=== PATIENT | female | born 2000 | race Two or more races ===

== ENCOUNTER 2022-09-10 18:39 | Emergency (ER) | payer OTHER ==
[2022-09-10 18:59] VITALS: BP 112/66
--- NOTE | 2022-09-10 20:43 | ED Physician Documentation ---
History of Present Illness - Stated complaint Stated Complaint: COUGH,HEADACHE,ABD PX - Chief complaint Chief Complaint: General - History obtained from History obtained from: Patient, Other (With the use director corporate security service) - Additonal information Additional information: Patient is a 22-year-old female presenting for evaluation of headache, nonproductive cough, sore throat, body aches for 3 days. She also reports having a lower abdominal cramping and pain for the past 3 days and states that she has had a positive home test. She reports having an episode of creamy white discharge today that had some blood in it and also reports lower back pain. She reports a history of 1 prior miscarriage. She has not taken any medications for her symptoms. She denies any known sick contacts. She denies dysuria or concerns for sexually transmitted infections. She denies chest pain, difficulty breathing, nausea or vomiting. director corporate security service was used for all conversations and encounters with this patient. Review of Systems Constitutional: denies: Fever Nose: reports: Congestion Throat: reports: Sore throat Cardiac: denies: Chest pain / pressure Respiratory: reports: Cough. denies: Dyspnea GI: reports: Abdominal Pain. denies: Vomiting, Diarrhea : denies: Dysuria Musculoskeletal: reports: Back pain Neurologic: reports: Headache PD PAST MEDICAL HISTORY - Present Medications Home Medications: Ambulatory Orders Medication Instructions Recorded Confirmed No Known Home Medications 09/10/22 09/10/22 - Allergies Allergies/Adverse Reactions: Allergies Allergy/AdvReac Type Severity Reaction Status Date / Time No Known Drug Allergies Allergy Verified 09/10/22 18:59 PD ED PE NORMAL - General General: Alert and oriented X 3, No acute distress, Well developed/nourished - HEENT HEENT: Atraumatic, Moist mucous membranes, Pharynx benign (No oral swelling, erythema or exudate) - Neck Neck: Supple, no meningeal sign - Cardiac Cardiac: RRR - Respiratory Respiratory: No respiratory distress, Clear bilaterally - Abdomen Abdomen: Normal bowel sounds, Soft, Non distended, Other (Mild lower abdominal tenderness to palpation) - Back Back: No CVA TTP - Derm Derm: Warm and dry Results - Vitals Vitals: Vital Signs - 24 hr 09/10/22 18:50 Temperature 36.5 C Heart Rate 83 Respiratory 16 Rate Blood Pressure 112/66 O2 Saturation 100 Oxygen O2 Source Room air - Labs Labs: Laboratory Tests 09/10/22 09/10/22 09/10/22 19:00 20:50 20:50 WBC 6.5 RBC 4.67 Hgb 13.8 Hct 41.5 MCV 88.9 MCH 29.6 MCHC 33.3 RDW 11.5 L Plt Count 239 MPV 9.6 Neut # (Auto) 4.4 Lymph # (Auto) 1.5 [place] # (Auto) 0.4 Eos # (Auto) 0.2 Baso # (Auto) 0.0 Absolute Nucleated RBC 0.00 Nucleated RBC % 0.0 Sodium Potassium Chloride Carbon Dioxide Anion Gap BUN Creatinine Estimated GFR (MDRD) Glucose Calcium Total Bilirubin AST ALT Alkaline Phosphatase Total Protein Albumin Globulin Albumin/Globulin Ratio Lipase HCG, Quant Urine Color Urine Clarity Urine pH Ur Specific [place] Urine Protein Urine Glucose (UA) Urine Ketones Urine Occult Blood Urine Nitrite Urine Bilirubin Urine Urobilinogen Ur Leukocyte Esterase Ur Microscopic Review Urine Culture Comments Nasal Adenovirus (PCR) NOT DETECTED Nasal B. parapertussis DNA (PCR) NOT DETECTED Nasal Coronavir 229E PCR NOT DETECTED Nasal Coronavir HKU1 PCR NOT DETECTED Nasal Coronavir NL63 PCR NOT DETECTED Nasal Coronavir OC43 PCR NOT DETECTED Nasal Enterovir/Rhinovir PCR NOT DETECTED Nasal Influenza B PCR NOT DETECTED Nasal Influenza A PCR NOT DETECTED Nasal Parainfluen 1 PCR NOT DETECTED Nasal Parainfluen 2 PCR NOT DETECTED Nasal Parainfluen 3 PCR NOT DETECTED Nasal Parainfluen 4 PCR NOT DETECTED Nasal RSV (PCR) NOT DETECTED Nasal B.pertussis DNA PCR NOT DETECTED Nasal C.pneumoniae (PCR) NOT DETECTED Emmanuel Human Metapneumo PCR DETECTED A Nasal M.pneumoniae (PCR) NOT DETECTED Nasal SARS-CoV-2 (PCR) NOT DETECTED Group A Strep Rapid Blood Type O POSITIVE Blood Type Recheck 09/10/22 09/10/22 09/10/22 20:50 20:53 21:43 WBC RBC Hgb Hct MCV MCH MCHC RDW Plt Count MPV Neut # (Auto) Lymph # (Auto) [place] # (Auto) Eos # (Auto) Baso # (Auto) Absolute Nucleated RBC Nucleated RBC % Sodium 136 Potassium 3.7 Chloride 104 Carbon Dioxide 21 Anion Gap 11.0 BUN 10 Creatinine 0.6 Estimated GFR (MDRD) 125 Glucose 83 Calcium 9.4 Total Bilirubin 0.3 AST 20 ALT 15 Alkaline Phosphatase 64 Total Protein 8.5 H Albumin 4.6 Globulin 3.9 Albumin/Globulin Ratio 1.2 Lipase 32 HCG, Quant 11155.00 Urine Color Urine Clarity Urine pH Ur Specific [place] Urine Protein Urine Glucose (UA) Urine Ketones Urine Occult Blood Urine Nitrite Urine Bilirubin Urine Urobilinogen Ur Leukocyte Esterase Ur Microscopic Review Urine Culture Comments Nasal Adenovirus (PCR) Nasal B. parapertussis DNA (PCR) Nasal Coronavir 229E PCR Nasal Coronavir HKU1 PCR Nasal Coronavir NL63 PCR Nasal Coronavir OC43 PCR Nasal Enterovir/Rhinovir PCR Nasal Influenza B PCR Nasal Influenza A PCR Nasal Parainfluen 1 PCR Nasal Parainfluen 2 PCR Nasal Parainfluen 3 PCR Nasal Parainfluen 4 PCR Nasal RSV (PCR) Nasal B.pertussis DNA PCR Nasal C.pneumoniae (PCR) Emmanuel Human Metapneumo PCR Nasal M.pneumoniae (PCR) Nasal SARS-CoV-2 (PCR) Group A Strep Rapid Negative Blood Type Blood Type Recheck 09/10/22 09/10/22 21:49 22:17 WBC RBC Hgb Hct MCV MCH MCHC RDW Plt Count MPV Neut # (Auto) Lymph # (Auto) [place] # (Auto) Eos # (Auto) Baso # (Auto) Absolute Nucleated RBC Nucleated RBC % Sodium Potassium Chloride Carbon Dioxide Anion Gap BUN Creatinine Estimated GFR (MDRD) Glucose Calcium Total Bilirubin AST ALT Alkaline Phosphatase Total Protein Albumin Globulin Albumin/Globulin Ratio Lipase HCG, Quant Urine Color YELLOW Urine Clarity CLEAR Urine pH 5.5 Ur Specific Norris >=1.030 H Urine Protein TRACE Urine Glucose (UA) NEGATIVE Urine Ketones >=80 H Urine Occult Blood NEGATIVE Urine Nitrite NEGATIVE Urine Bilirubin NEGATIVE Urine Urobilinogen 0.2 (NORMAL) Ur Leukocyte Esterase NEGATIVE Ur Microscopic Review NOT INDICATED Urine Culture Comments NOT INDICATED Nasal Adenovirus (PCR) Nasal B. parapertussis DNA (PCR) Nasal Coronavir 229E PCR Nasal Coronavir HKU1 PCR Nasal Coronavir NL63 PCR Nasal Coronavir OC43 PCR Nasal Enterovir/Rhinovir PCR Nasal Influenza B PCR Nasal Influenza A PCR Nasal Parainfluen 1 PCR Nasal Parainfluen 2 PCR Nasal Parainfluen 3 PCR Nasal Parainfluen 4 PCR Nasal RSV (PCR) Nasal B.pertussis DNA PCR Nasal C.pneumoniae (PCR) Emmanuel Human Metapneumo PCR Nasal M.pneumoniae (PCR) Nasal SARS-CoV-2 (PCR) Group A Strep Rapid Blood Type Blood Type Recheck O POSITIVE PD Medical Decision Making - ED course Complexity details: reviewed results, re-evaluated patient, d/w patient ED course: Patient is presenting for evaluation of URI symptoms for the past 3 days along with lower abdominal cramping. She does report having a positive home test. Her vital signs are stable. She is overall well-appearing with no signs of labored breathing and her abdominal exam is benign. I do not think she has signs to suggest torsion or TOA. She denies concerns for sexually transmitted infections. Labs are reviewed and significant for elevated beta hCG.Her respiratory swab is also positive for human metapneumovirus.An ultrasound was obtained Which I reviewed and see evidence of an intrauterine .Her vaginal swabs are pending. Her urine does not appear to be infected. She has not required any pain medications here and again has no signs of labored breathing with normal lung exam. Her symptoms in regards to her URI are likely viral.I did review her results using a director corporate security. Patient is counseled on need for follow-up with [facility] to establish care. I did also recommend starting vitamins. Patient is counseled on continued supportive care as well as concerning symptoms to return for. Departure - Departure Disposition: Home, Self Care Clinical Impression: Viral URI, Intrauterine Condition: Stable Instructions: ED Miscarriage Poss, ED URI Viral Comments: You have a cold virus called human metapneumovirus. There is no specific treatment for this but I would recommend fluids, rest and acetaminophen as needed for aches and pain. Your ultrasound shows a Inside your uterus that is approximately 5 weeks and 5 days. Any symptoms of vaginal bleeding or abdominal pain it could indicate a possible miscarriage but at this time it is too early to tell. I would recommend follow-up with an [facility] office. I would also recommend taking vitamins. The results of your vaginal swabs will be back in the next 1 to 2 days.We will notify you of any abnormal results. Return to the ER with any worsening pain or heavy vaginal bleeding. Discharge Date/Time: 09/10/22 23:14
[2022-09-10 20:54] LABS: B. PARAPERTUSSIS- RESP PCR PAN NOT DETECTED; B. PERTUSSIS- RESP PCR PANEL NOT DETECTED; C. PNEUMONIAE- RESP PCR PANEL NOT DETECTED; CORONAVIRUS 229E-RESP PCR NOT DETECTED; CORONAVIRUS HKU1-RESP PCR NOT DETECTED; CORONAVIRUS NL63-RESP PCR NOT DETECTED; CORONAVIRUS OC43-RESP PCR NOT DETECTED; HUMAN METAPNEUMOVIRUS DETECTED; INFLUENZA A- RESP PCR PANEL NOT DETECTED; INFLUENZA B - RESP PCR PANEL NOT DETECTED; M. PNEUMONIAE- RESP PCR PANEL NOT DETECTED; PARAINFLUENZA VIRUS 1 NOT DETECTED; PARAINFLUENZA VIRUS 2 NOT DETECTED; PARAINFLUENZA VIRUS 3 NOT DETECTED; PARAINFLUENZA VIRUS 4 NOT DETECTED; RHINOVIRUS/ENTEROVIRUS NOT DETECTED; RSV- RESP PCR PANEL NOT DETECTED; SARS-CoV-2 -RESP PCR PANEL NOT DETECTED
[2022-09-10 20:58] LABS: BASOPHILS % (AUTO) 0.2 %; EOSINOPHILS # (AUTO) 0.2 10^3/uL (0.0-0.7); EOSINOPHILS % (AUTO) 2.6 %; HCT - HEMATOCRIT 41.5 % (37.0-47.0); HGB - HEMOGLOBIN 13.8 g/dL (12.0-16.0); LYMPHOCYTES # (AUTO) 1.5 10^3/uL (1.5-3.5); LYMPHOCYTES % (AUTO) 23.6 %; MEAN CORPUSCULAR HEMOGLOBIN 29.6 pg (27.0-31.0); MEAN CORPUSCULAR HGB CONC 33.3 g/dL (32.0-36.0); MEAN CORPUSCULAR VOLUME 88.9 fL (81.0-99.0); MEAN PLATELET VOLUME 9.6 fL (7.9-10.8); MONOCYTES # (AUTO) 0.4 10^3/uL (0.0-1.0); MONOCYTES % (AUTO) 6.2 %; NEUTROPHILS # (AUTO) 4.4 10^3/uL (1.5-6.6); NEUTROPHILS % (AUTO) 67.2 %; PLT - PLATELET COUNT 239 10^3/uL (130-450); RED BLOOD COUNT 4.67 10^6/uL (4.20-5.40); RED CELL DISTRIBUTION WIDTH 11.5 % (12.0-15.0); WHITE BLOOD COUNT 6.5 x10^3/uL (4.8-10.8)
[2022-09-10 21:10] LABS: ALBUMIN 4.6 g/dL (3.2-5.5); ALBUMIN/GLOBULIN RATIO 1.2 (1.0-2.2); BILIRUBIN,TOTAL 0.3 mg/dL (0.2-1.0); CALCIUM 9.4 mg/dL (8.5-10.3); CREATININE 0.6 mg/dL (0.4-1.0); POTASSIUM 3.7 mmol/L (3.5-5.0); TOTAL PROTEIN 8.5 g/dL (6.7-8.2)
[2022-09-10 21:56] LABS: RAPID STREP SCREEN Negative (Negative)
[2022-09-10 22:25] LABS: BILIRUBIN,URINE NEGATIVE (NEGATIVE); GLUCOSE, URINE (UA) NEGATIVE (NEGATIVE); KETONES,URINE (UA) >=80 mg/dL (NEGATIVE); LEUKOCYTE ESTERASE, URINE NEGATIVE (NEGATIVE); NITRITE,URINE NEGATIVE (NEGATIVE); OCCULT BLOOD,URINE NEGATIVE (NEGATIVE); PH,URINE 5.5 PH (5.0-7.5); PROTEIN,URINE TRACE mg/dL (NEGATIVE); UROBILINOGEN,URINE 0.2 (NORMAL) E.U./dL (NORMAL)
[2022-09-10 22:27] LABS: CLARITY,URINE CLEAR (CLEAR)
--- NOTE | 2022-09-10 22:35 | Ultrasound Report ---
PROCEDURE: OB First Trimester INDICATIONS: pain/5 weeks preg OUTSIDE/PRIOR DATING DATA: Last menstrual period (LMP): 08/03/2022. LMP-based estimated date of delivery (KSENIA): 05/10/2023 First dating scan (date and location): This study. Estimated date of delivery (KSENIA) from first dating scan: 05/08/2023. The below data below was generated using the KSENIA of TECHNIQUE: Real-time scanning was performed of the fetus and maternal pelvic organs, with image documentation. COMPARISON: None. FINDINGS: There is an intrauterine gestational sac with a yolk sac within, with early heart rate obs erved at 89 bpm. [place]-rump length is 2.2 mm which correlates with a gestational age of 5 weeks 5 day s, +/- 5 days. Embryo: Very early intrauterine gestation. Heart rate: 89 bpm Measurement variability in dating: +/- 4 weeks by LMP, +/- 7 days by mean sac diameter (use before 6 weeks gestation if crown-rump length not able to be measured), +/- 5 days by crown-rump length (6-12 weeks gestation). Maternal organs: Ovaries normal considering gestational status. IMPRESSION: Single living intrauterine gestation with delivery date projected to be centered on 05/08/2023. Follow -up anatomic survey is anticipated. Reviewed by: Vahid Collins MD on 09/10/2022 10:34 PM PST Approved by: Vahid Collins MD on 09/10/2022 10:34 PM PST Station ID: [id number]
--- NOTE | 2022-09-10 22:36 | Ultrasound Report ---
PROCEDURE: OB Transvaginal INDICATIONS: pain/5 weeks preg Please refer to the dedicated combined report for early first trimester OB ultrasound and transvagina l OB ultrasound from imaging study performed with this examination, same day. IMPRESSION: Viable intrauterine gestation as previously described. Reviewed by: Vahid Collins MD on 09/10/2022 10:35 PM [facility] Approved by: Vahid Collins MD on 09/10/2022 10:35 PM [facility] Station ID: [id number]
[2022-09-11 03:08] LABS: BACTERIAL VAGINOSIS DNA POSITIVE (NEGATIVE); CANDIDA GLABRATA DNA NEGATIVE (NEGATIVE); CANDIDA GROUP DNA NEGATIVE (NEGATIVE); CANDIDA KRUSEI DNA NEGATIVE (NEGATIVE); TRICHOMONAS VAGINALIS DNA NEGATIVE (NEGATIVE)
[2022-09-11 05:16] LABS: CHLAMYDIA TRACHOMATIS DNA NEGATIVE (NEGATIVE); NEISSERIA GONORRHOEAE DNA NEGATIVE (NEGATIVE)
== END 2022-09-10 23:14 | disposition home or self-care (01) ==
LOC: ED 18:39
DX: O99.511 Diseases of the respiratory system complicating pregnancy, first trimester (principal); J06.9 Acute upper respiratory infection, unspecified; Z3A.01 Less than 8 weeks gestation of pregnancy
CPT/HCPCS: 36415; 80053; 81001; 81003; 81514; 83690; 84702; 85025; 86900; 86901; 87070; 87086; 87430; 87491; 87591; 87633; 87661; 99283; 99284

== ENCOUNTER 2022-09-26 02:01 | Outpatient (CLI) | payer OTHER | END 2022-09-26 23:59 | disposition critical access hospital (66) | LOC: EMS 02:01 | DX: O20.9 Hemorrhage in early pregnancy, unspecified (principal); R42 Dizziness and giddiness; R10.814 Left lower quadrant abdominal tenderness; R10.813 Right lower quadrant abdominal tenderness | CPT/HCPCS: A0425; A0427 ==

== ENCOUNTER 2022-09-26 02:22 | Emergency (ER) | payer OTHER ==
--- NOTE | 2022-09-26 02:28 | ED Physician Documentation ---
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 HPI is from patient although she is Kyrgyz-speaking only; is at bedside and acts as conference translator (he tells me he is quite comfortable translating from Mauritian to Kyrgyz). Patient says she is approximately 7 weeks , she is complaining of right lower abdominal and pelvic pain starting approximately 2 to 3 hours ago while at rest. Denies nausea, vomiting. She also notes vaginal bleeding that started tonight. In further discussion, she is also describing similar abdominal pain when she was last evaluated in this emergency department (September 10, 2022). On this previous ED visit, she was diagnosed with human metapneumovirus. She also had a pelvic ultrasound performed and a viable IUP was noted, 5 weeks 5 days gestational age. Review of Systems Constitutional: denies: Fever GI: reports: Abdominal Pain. denies: Abdominal Swelling, Nausea, Vomiting, Constipation, Diarrhea : reports: Vaginal bleeding, Now EGA (7). denies: Dysuria, Frequency PD PAST MEDICAL HISTORY - Past Medical History Past Medical History: No - Present Medications Home Medications: Ambulatory Orders Medication Instructions Recorded Confirmed Pnv No.95/Ferrous Fum/Folic AC 1 each PO DAILY 09/26/22 09/26/22 [ Tablet] - Allergies Allergies/Adverse Reactions: Allergies Allergy/AdvReac Type Severity Reaction Status Date / Time No Known Drug Allergies Allergy Verified 09/10/22 18:59 - Living Situation Living Situation: reports: With spouse/s.o. Living Arrangement: reports: At home PD ED PE NORMAL - Vitals Vital signs reviewed: Yes - General General: Alert and oriented X 3, No acute distress, Well developed/nourished - Cardiac Cardiac: RRR, No murmur - Respiratory Respiratory: No respiratory distress, Clear bilaterally - Abdomen Abdomen: Normal bowel sounds, Soft, Non distended, Other (mild, focal RLQ tenderness without rebound or guarding) - Back Back: No CVA TTP - Derm Derm: Normal color, Warm and dry Results - Vitals Vitals: Vital Signs - 24 hr 09/26/22 09/26/22 09/26/22 02:30 02:32 04:00 Temperature 37.1 C 37.1 C Heart Rate 77 77 73 Respiratory 17 17 Rate Blood Pressure 107/81 H 108/71 98/55 L O2 Saturation 98 98 99 09/26/22 09/26/22 06:00 07:30 Temperature Heart Rate 67 65 Respiratory 16 16 Rate Blood Pressure 105/61 100/58 L O2 Saturation 97 98 Oxygen O2 Source Room air - Labs Labs: Laboratory Tests 09/26/22 09/26/22 09/26/22 02:50 02:50 02:50 WBC 9.6 RBC 3.73 L Hgb 11.0 L Hct 32.7 L MCV 87.7 MCH 29.5 MCHC 33.6 RDW 11.2 L Plt Count 258 MPV 10.0 Neut # (Auto) 6.8 H Lymph # (Auto) 2.2 [place] # (Auto) 0.5 Eos # (Auto) 0.1 Baso # (Auto) 0.0 Absolute Nucleated RBC 0.00 Nucleated RBC % 0.0 Sodium 137 Potassium 3.3 L Chloride 109 Carbon Dioxide 21 Anion Gap 7.0 BUN 6 Creatinine 0.3 L Estimated GFR (MDRD) 278 Glucose 108 H Calcium 8.4 L Total Bilirubin 0.3 AST 15 ALT 12 Alkaline Phosphatase 44 Total Protein 6.3 L Albumin 3.5 Globulin 2.8 Albumin/Globulin Ratio 1.3 Lipase 47 HCG, Quant 633589.00 Urine Color Urine Clarity Urine pH Ur Specific [place] Urine Protein Urine Glucose (UA) Urine Ketones Urine Occult Blood Urine Nitrite Urine Bilirubin Urine Urobilinogen Ur Leukocyte Esterase Urine RBC Urine WBC Ur Squamous Epith Cells Urine Bacteria Ur Microscopic Review Urine Culture Comments 09/26/22 03:07 WBC RBC Hgb Hct MCV MCH MCHC RDW Plt Count MPV Neut # (Auto) Lymph # (Auto) [place] # (Auto) Eos # (Auto) Baso # (Auto) Absolute Nucleated RBC Nucleated RBC % Sodium Potassium Chloride Carbon Dioxide Anion Gap BUN Creatinine Estimated GFR (MDRD) Glucose Calcium Total Bilirubin AST ALT Alkaline Phosphatase Total Protein Albumin Globulin Albumin/Globulin Ratio Lipase HCG, Quant Urine Color YELLOW Urine Clarity CLEAR Urine pH 6.0 Ur Specific [place] 1.025 Urine Protein NEGATIVE Urine Glucose (UA) 100 H Urine Ketones TRACE Urine Occult Blood NEGATIVE Urine Nitrite POSITIVE H Urine Bilirubin NEGATIVE Urine Urobilinogen 0.2 (NORMAL) Ur Leukocyte Esterase NEGATIVE Urine RBC 0-5 Urine WBC 0-3 Ur Squamous Epith Cells FEW Squamous Urine Bacteria Few Ur Microscopic Review INDICATED Urine Culture Comments INDICATED - Rads (name of study) pelvic US Relevant Findings:: Prelim report reviewed, See rad report PD Medical Decision Making - ED course Complexity details: reviewed old records (reviewed EDMD notes from 09/10/22 visit), reviewed results, re-evaluated patient, considered differential, d/w patient, d/w family ED course: Patient is held in the emergency department for a few hours waiting for ultrasound availability, as they are not in-house when patient presents to the ER and did not become available until 6 AM. Patient expressed to me that she was comfortable waiting for the ultrasound to be performed. She is afebrile and has a normal white blood cell count. Her quantitative hCG has increased approximately 10 fold from the previous visit on September 10 (from [phone] to 137,813). The ultrasound performed this morning is reassuring, showing a single living IUG approximately 8 weeks 0 days, cardiac activity at 158 bpm, no free fluid, closed cervix. I reexamined patient's abdomen after the ultrasound was resulted. And she does not have any significant abdominal tenderness including the right lower quadrant. Results were discussed with the patient. At this time, no further emergent testing is indicated. I did review the concept of threatened miscarriage despite the reassuring test results, emphasizing the need for follow-up with enterprise solutions architect. Return precautions were discussed Departure - Departure Disposition: 01 Home, Self Care Clinical Impression: Intrauterine Condition: Good Instructions: ED Miscarriage Poss Comments: At this time, the findings on the ultrasound are very reassuring. The ultrasound shows that the has progressed to 8 weeks with a normal heart rate and no evidence of any bleeding or cysts. The blood tests also were reassuring. I recommend that you contact your INSURANCE LOSS ASSESSOR this morning when their office opens to arrange for next available appointment for reevaluation. Certainly, if your symptoms worsen, or if you develop new/concerning signs/symptoms (such as increasing abdominal pain or fever), you can return to the emergency department for reevaluation.
[2022-09-26 02:54] LABS: BASOPHILS % (AUTO) 0.2 %; EOSINOPHILS # (AUTO) 0.1 10^3/uL (0.0-0.7); EOSINOPHILS % (AUTO) 1.5 %; HCT - HEMATOCRIT 32.7 % (37.0-47.0); LYMPHOCYTES # (AUTO) 2.2 10^3/uL (1.5-3.5); LYMPHOCYTES % (AUTO) 22.9 %; MEAN CORPUSCULAR HEMOGLOBIN 29.5 pg (27.0-31.0); MEAN CORPUSCULAR HGB CONC 33.6 g/dL (32.0-36.0); MEAN CORPUSCULAR VOLUME 87.7 fL (81.0-99.0); MONOCYTES # (AUTO) 0.5 10^3/uL (0.0-1.0); MONOCYTES % (AUTO) 4.9 %; NEUTROPHILS # (AUTO) 6.8 10^3/uL (1.5-6.6); NEUTROPHILS % (AUTO) 70.3 %; PLT - PLATELET COUNT 258 10^3/uL (130-450); RED BLOOD COUNT 3.73 10^6/uL (4.20-5.40); RED CELL DISTRIBUTION WIDTH 11.2 % (12.0-15.0); WHITE BLOOD COUNT 9.6 x10^3/uL (4.8-10.8)
[2022-09-26 03:22] LABS: ALBUMIN 3.5 g/dL (3.2-5.5); ALBUMIN/GLOBULIN RATIO 1.3 (1.0-2.2); BILIRUBIN,TOTAL 0.3 mg/dL (0.2-1.0); CALCIUM 8.4 mg/dL (8.5-10.3); CREATININE 0.3 mg/dL (0.4-1.0); POTASSIUM 3.3 mmol/L (3.5-5.0); TOTAL PROTEIN 6.3 g/dL (6.7-8.2)
[2022-09-26 04:03] LABS: BILIRUBIN,URINE NEGATIVE (NEGATIVE); GLUCOSE, URINE (UA) 100 mg/dL (NEGATIVE); KETONES,URINE (UA) TRACE mg/dL (NEGATIVE); LEUKOCYTE ESTERASE, URINE NEGATIVE (NEGATIVE); NITRITE,URINE POSITIVE (NEGATIVE); OCCULT BLOOD,URINE NEGATIVE (NEGATIVE); PROTEIN,URINE NEGATIVE (NEGATIVE); UROBILINOGEN,URINE 0.2 (NORMAL) E.U./dL (NORMAL)
[2022-09-26 04:06] LABS: CLARITY,URINE CLEAR (CLEAR)
[2022-09-26 04:15] LABS: BACTERIA,URINE Few /HPF (None Seen); RBC,URINE 0-5 /HPF (0-5); SQUAMOUS EPITHELIAL CELL,UR FEW Squamous (<= Few); WBC,URINE 0-3 /HPF (0-5)
[2022-09-26 07:37] VITALS: BP 100/58
--- NOTE | 2022-09-26 13:45 | Ultrasound Report ---
PROCEDURE: OB First Trimester INDICATIONS: vaginal bleeding, cramping, 7 weeks OUTSIDE/PRIOR DATING DATA: Last menstrual period (LMP): 08/03/2022. LMP-based estimated date of delivery (KSENIA): 05/10/2023. First dating scan (date and location): 09/10/2022. Estimated date of delivery (KSENIA) from first dating scan: 5 weeks 5 days, 05/08/2023. The below data below was generated using the ultrasound KSENIA of 05/08/2023 TECHNIQUE: Real-time scanning was performed of the fetus and maternal pelvic organs, with image documentation. COMPARISON: 09/10/2022 FINDINGS: Embryo: Single living intrauterine . The crown-rump length measures 1.6 cm, corresponding t o 8 weeks 0 days. Heart rate: 158 bpm Measurement variability in dating: +/- 4 weeks by LMP, +/- 7 days by mean sac diameter (use before 6 weeks gestation if crown-rump length not able to be measured), +/- 5 days by crown-rump length (6-12 weeks gestation). Maternal organs: Ovaries are unremarkable. Cervix is unremarkable. IMPRESSION: Single living intrauterine at 8 weeks 0 days, corresponding to KSENIA of 05/08/2023. No acute abnormality. Reviewed by: Kaiden Carey on 09/26/2022 8:00 AM PDT Approved by: Kaiden Carey on 09/26/2022 8:00 AM PDT Station ID: [id number]
== END 2022-09-26 07:49 | disposition home or self-care (01) ==
LOC: EDUNIT# → ED 02:22
DX: O26.891 Other specified pregnancy related conditions, first trimester (principal); Z3A.01 Less than 8 weeks gestation of pregnancy; R10.31 Right lower quadrant pain
CPT/HCPCS: 36415; 80053; 81001; 81003; 83690; 84702; 85025; 87086; 99283; 99284